=== PATIENT | female | born 1935 | race American Indian/Alaskan Native ===

== ENCOUNTER 2018-04-18 12:05 | Inpatient (IN) | payer OTHER ==
--- NOTE | 2018-04-18 12:13 | PDOC ---
History of Present Illness - General Stated Complaint: LOW SODIUM LEVEL Time Seen by Provider: 04/18/18 12:13 - History of Present Illness Initial Comments: 82 year old female with history of advanced dementia, hypothyroidism, NIDDM, HTN, and chronic hyponatremia presenting with increased aggression for the past 7 days from [facility]. She is typically AO x1-2 at baseline and only occasionally aggressive. Her family denies fevers, chills, nausea, vomiting, diarrhea, cough, congestion, rhinorrhea, rash, or other symptoms. Dr. Lee and Dr. Tabor are her doctors. 04/18/18 12:27 Past History - Past Medical History Allergies/Adverse Reactions: Allergies Allergy/AdvReac Type Severity Reaction Status Date / Time No Known Allergies Allergy Unverified 04/18/18 13:03 Home Medications: Ambulatory Orders Amlodipine Besylate [Norvasc -] 5 mg PO DAILY 04/18/18 Bifidobacterium Infantis [Align] 4 mg PO DAILY 04/18/18 Bupropion HCl [Bupropion Xl] 300 mg PO DAILY 04/18/18 Cholecalciferol (Vitamin D3) [Vitamin D3] 50,000 unit PO MONTHLY 04/18/18 Cholestyramine (with Sugar) [Cholestyramine Powder] 4 gm PO TID 04/18/18 Cyanocobalamin (Vitamin B-12) [Vitamin B12] 5,000 mcg PO DAILY 04/18/18 Cyclosporine [Restasis] 1 each OU BID 04/18/18 Levothyroxine [Synthroid -] 25 mcg PO DAILY 04/18/18 Loperamide HCl [Loperamide] 2 mg PO Q6H PRN 04/18/18 Paliperidone [Paliperidone ER] 1.5 mg PO HS 04/18/18 Sitagliptin Phosphate [Januvia] 50 mg PO DAILY 04/18/18 Vit C/E/Zn/Coppr/Lutein/Zeaxan [Preservision Areds 2 Softgel] 1 each PO DAILY Review of Systems - Review of Systems Able to Perform ROS?: No (ROS obtained from family) Constitutional: No: Chills, Diaphoresis, Fever HEENTM: No: Eye Pain, Blurred Vision Respiratory: Yes: Cough (dry). No: Shortness of Breath, SOB with Exertion Cardiac (ROS): No: Chest Pain, Lightheadedness ABD/GI: No: Nausea, Vomiting : No: Burning, Dysuria, Frequency, Hematuria Musculoskeletal: No: Back Pain, Muscle Pain, Muscle Weakness Integumentary: No: Bruising, Change in Color Neurological: No: Headache, Numbness Psychiatric: Yes: Depression. No: Anxiety, Change in Appetite Hematologic/Lymphatic: No: Anemia *Physical Exam - Physical Exam General Appearance: Yes: Nourished, Appropriately Dressed. No: Apparent Distress (No distress at baseline but becomes very aggitated once moved or touched.) HEENT: positive: EOMI, TENNILLE, Normal ENT Inspection, Normal Voice Neck: positive: Trachea midline, Normal Thyroid, Supple. negative: Tender, Rigid Respiratory/Chest: positive: Lungs Clear, Normal Breath Sounds. negative: Chest Tender, Respiratory Distress, Accessory Muscle Use Cardiovascular: positive: Regular Rhythm, Regular Rate Gastrointestinal/Abdominal: positive: Normal Bowel Sounds, Flat, Soft. negative : Tender Musculoskeletal: positive: Normal Inspection. negative: Decreased Range of Motion (ROM seems ful but patient pulls and prefers to hold herself) Extremity: positive: Normal Capillary Refill, Normal Range of Motion, Swelling ( bilateal LE swelling L>R). negative: Normal Inspection, Tender Integumentary: positive: Normal Color, Dry, Warm Neurologic: positive: Alert, Motor Strength 5/5. negative: Fully Oriented (AOx 1 (to self)) ED Treatment Course - LABORATORY CBC & Chemistry Diagram: 04/18/18 12:30 04/18/18 13:37 Medical Decision Making - Medical Decision Making 82 year old female presenting with one week of agitation without obvious signs of infection but sodium of 124 recorded at [address] head grossly normal with exception of left sinus chronic sinusitis with read of "cannot rule out fungal infection". Labs demonstrating hypothyroidism (TSH 7s) and hyponatremia of (126). Given the two lab abnormalities, she warrants an admission for gentle correction of her sodium and further workup of her chronic hyponatremia (SIADH vs. other causes). UA and CXR clear. Dr. Isaac consulted for electrolyte correction. Dr. Gutiérrez consulted for CT read. Dr. Carbajal was signed out patient and will evaluate her this afternoon. 04/18/18 15:12 *DC/Admit/Observation/Transfer Diagnosis at time of Disposition: Hyponatremia Hypothyroidism Qualifiers: Hypothyroidism type: acquired Qualified Code(s): E03.9 - Hypothyroidism, unspecified - Discharge Dispostion Condition at time of disposition: Stable Decision to Admit order: Yes - Referrals - Patient Instructions - Post Discharge Activity
[2018-04-18 12:36] VITALS: BMI 24.1
--- NOTE | 2018-04-18 13:01 | PDOC ---
Attending Attestation - HPI HPI: 04/18/18 13:14 The patient is a 82 year old female with a significant PMH of advanced dementia , hypothyroidism, NIDDM, HTN, and chronic hyponatremia who presents to the emergency department with increased aggression over the past seven days as per group home. The family states the patient is occasionally aggressive. Family denies any rashes, fever, chills, nausea, vomit, diarrhea and constipation. Allergies: NKA Past surgical history: None reported. Social history: No reported alcohol, drug, or cigarette use. PCP: Dr. Lee - Physicial Exam PE: 04/18/18 14:47 Vitals: Triage vital signs reviewed General Appearance: No acute distress, well nourished, well developed Head: Atraumatic Eyes: Pupils equal reactive round, extraocular movement intact Ears: TM's normal bilaterally Nose: Nares patent bilaterally; no nasal congestion Throat: Posterior oropharynx without erythema, mucous membranes moist Neck: Supple; No nuchal rigidity Chest Wall: Nontender Cardiac: Regular rate and rhythm, no murmurs, no rubs, no gallops Lungs: Clear to auscultation bilateral, good air movement bilaterally Abdomen: Soft, nondistended, normal bowel sounds, nontender to palpation Extremities: Full range of motion to all extremities, no cyanosis, clubbing, or edema Skin: Warm and dry, no rashes or lesions, no rash, no petechiae Neuro: Cranial Nerves 2-12 grossly intact, Strength intact to all extremities, Sensation intact to all extremities. Psych: Normal mood, normal affect - Medical Decision Making 04/18/18 14:20 The patient is a 82 year old female with a significant PMH of advanced dementia , hypothyroidism, NIDDM, HTN, and chronic hyponatremia who presents to the emergency department with increased aggression over the past seven days as per group home. The family states the patient is occasionally aggressive. Family denies any rashes, fever, chills, nausea, vomit, diarrhea and constipation. Allergies: NKA Past surgical history: None reported. Social history: No reported alcohol, drug, or cigarette use. PCP: Dr. Lee 04/18/18 14:37 Imaging: Portable chest XR Impression: No acute chest pathology. Reported by: Dr. Graham 04/18/18 14:45 Case d/w Dr. Lee, PCP. 04/18/18 14:50 Case d/w Dr. Valera, will come see the patient. 04/18/18 14:58 Case d/w Dr. Carbajal, patient is admitted. <Leslie Gifford - Last Filed: 04/18/18 14:58> - Resident Resident Name: Bert Cabrera - ED Attending Attestation I have performed the following: I have examined & evaluated the patient, The case was reviewed & discussed with the resident, I agree w/resident's findings & plan, Exceptions are as noted - Medical Decision Making Patient sensitive emergency department for further management of hypernatremia and agitation CAT scan with no evidence of bleed or mass. Lab sensory sodium of 126. Nephrology has been consult. Will admit patient to care of Dr. Benjamin for further management. <Billy Horvath - Last Filed: 04/18/18 15:11> Heart Score/ECG Review - ECG Impressions Comment:: 04/18/18 15:10 EKG performed at 1504 demonstrated sinus rhythm no serial elevations or T-wave inversions slightly low voltage QRS. Interpreted by me. <Billy Horvath - Last Filed: 04/18/18 15:11>
[2018-04-18] MEDS ORDERED: LORazepam 2 MG/ML SDV VIAL ONE (13:16)
[2018-04-18 13:29] LABS: URINE APPEARANCE CLEAR; URINE BILIRUBIN NEGATIVE (<2.0 mg/dL); URINE COLOR LTYELLOW; URINE GLUCOSE (UA) 3+ (NEGATIVE); URINE KETONE TRACE (NEGATIVE); URINE LEUK ESTERASE NEGATIVE (NEGATIVE); URINE NITRITE NEGATIVE (NEGATIVE); URINE PROTEIN NEGATIVE (NEGATIVE); URINE UROBILINOGEN NEGATIVE mg/dL (0.2-1.0)
[2018-04-18 13:47] LABS: BASO % 0.5 % (0-2.0); EOS % 0.3 % (0-4.5); HEMATOCRIT 34.6 % (32.4-45.2); HEMOGLOBIN 11.1 GM/dL (10.7-15.3); LYMPH % 13.3 % (8-40); MCH 21.9 pg (25.7-33.7); MCHC 32.1 g/dl (32.0-36.0); MEAN CELL VOLUME 68.3 fl (80-96); MEAN PLT VOLUME 7.3 fl (7.5-11.1); MONO % 9.9 % (3.8-10.2); PLATELET COUNT 330 K/MM3 (134-434); RBC 5.07 M/mm3 (3.60-5.2); RDW 18.4 % (11.6-15.6); WHITE BLOOD COUNT 8.9 K/mm3 (4.0-10.0)
[2018-04-18 14:24] LABS: ALBUMIN 3.4 g/dl (3.4-5.0); ANION GAP 10 (8-16); BILIRUBIN,TOTAL 0.4 mg/dL (0.2-1.0); BLOOD UREA NITROGEN 12 mg/dL (7-18); CALCIUM 8.9 mg/dL (8.5-10.1); CHLORIDE 89 mmol/L (98-107); CO2 27 mmol/L (21-32); CREATININE 0.8 mg/dL (0.55-1.02); GLUCOSE,RANDOM 220 mg/dL (74-106); POTASSIUM 4.1 mmol/L (3.5-5.1); SGOT/AST 19 U/L (15-37); SGPT/ALT 26 U/L (12-78); SODIUM 126 mmol/L (136-145)
[2018-04-18 14:33] LABS: ALK PHOS 121 U/L (45-117)
--- NOTE | 2018-04-18 15:55 | CONSULT ---
Consult Consult Specialty:: Nephrology Reason for Consultation:: hyponatremia - History of Present Illness Chief Complaint: sent in for aggression from the [place] History of Present Illness: Pt is an 82 year old female with pmhx of hyponatremia, dementia, hypothyroidism , DM, HTN and depression who was sent in for increased aggression over the last seven days. I was called to evaluate her for hyponatremia. She follows with Dr Seymour and her sodium is usually in the 128 range. She was found to have a sodium of 124 about 3 days ago. She is arousable but unable to give history. Her family and health aid are at bedside and they assisted. She denies shortness of breath. She drinks about one liter of water per day. She has not had much appetite this week. She has not had fevers or chills. She does get loose stools at times. She is usually wheelchair bound. - History Source History Provided By: Medical Record - Past Medical History DIGITAL DESIGNER: Yes: Dementia Cardio/Vascular: Yes: HTN Renal/: Yes: Other (hyponatremia) Psych: Yes: Depression Endocrine: Yes: Diabetes Mellitus, Hypothyroidism - Alcohol/Substance Use Hx Alcohol Use: No - Smoking History Smoking history: Never smoked Home Medications - Allergies Allergies/Adverse Reactions: Allergies Allergy/AdvReac Type Severity Reaction Status Date / Time No Known Allergies Allergy Unverified 04/18/18 13:03 - Home Medications Home Medications: Ambulatory Orders Amlodipine Besylate [Norvasc -] 5 mg PO DAILY 04/18/18 Bifidobacterium Infantis [Align] 4 mg PO DAILY 04/18/18 Bupropion HCl [Bupropion Xl] 300 mg PO DAILY 04/18/18 Cholecalciferol (Vitamin D3) [Vitamin D3] 50,000 unit PO MONTHLY 04/18/18 Cholestyramine (with Sugar) [Cholestyramine Powder] 4 gm PO TID 04/18/18 Cyanocobalamin (Vitamin B-12) [Vitamin B12] 5,000 mcg PO DAILY 04/18/18 Cyclosporine [Restasis] 1 each OU BID 04/18/18 Levothyroxine [Synthroid -] 25 mcg PO DAILY 04/18/18 Loperamide HCl [Loperamide] 2 mg PO Q6H PRN 04/18/18 Paliperidone [Paliperidone ER] 1.5 mg PO HS 04/18/18 Sitagliptin Phosphate [Januvia] 50 mg PO DAILY 04/18/18 Vit C/E/Zn/Coppr/Lutein/Zeaxan [Preservision Areds 2 Softgel] 1 each PO DAILY Family Disease History - Family Disease History Family History: Denies Review of Systems - Review of Systems Constitutional: reports: Malaise Eyes: reports: No Symptoms HENT: reports: No Symptoms Neck: reports: No Symptoms Cardiovascular: reports: No Symptoms Respiratory: reports: No Symptoms Gastrointestinal: reports: No Symptoms Genitourinary: reports: No Symptoms Musculoskeletal: reports: No Symptoms Integumentary: reports: No Symptoms Neurological: reports: No Symptoms Endocrine: reports: No Symptoms Psychiatric: reports: Other (aggression) Physical Exam Vital Signs: Vital Signs Temperature 96.3 F L 04/18/18 12:24 Pulse Rate 88 04/18/18 13:30 Respiratory Rate 17 04/18/18 13:30 Blood Pressure 130/66 04/18/18 13:30 O2 Sat by Pulse Oximetry (%) 100 04/18/18 13:30 Constitutional: Yes: Calm Eyes: Yes: Conjunctiva Clear HENT: Yes: Atraumatic Neck: Yes: Supple Cardiovascular: Yes: S1, S2 Respiratory: Yes: CTA Bilaterally Gastrointestinal: Yes: Soft Renal/: Yes: WNL Musculoskeletal: Yes: WNL Edema: Yes Edema: LLE: 1+, RLE: Trace Integumentary: Yes: WNL Neurological: Yes: Confusion Psychiatric: Yes: Agitated Labs: CBC, BMP 04/18/18 12:30 04/18/18 13:37 Laboratory Tests 04/18/18 04/18/18 04/18/18 12:30 12:55 13:37 WBC 8.9 Hgb 11.1 Plt Count 330 Sodium 126 L Potassium 4.1 Chloride 89 L Anion Gap 10 BUN 12 Creat Clearance w eGFR > 60 Random Glucose 220 H Lactic Acid Urine Appearance Clear Urine pH 6.0 Ur Specific Sparks 1.011 Urine Glucose (UA) 3+ H Urine Ketones Trace H Urine Blood Negative Urine Nitrite Negative Urine Bilirubin Negative 04/18/18 13:37 WBC Hgb Plt Count Sodium Potassium Chloride Anion Gap BUN Creat Clearance w eGFR Random Glucose Lactic Acid 1.7 Urine Appearance Urine pH Ur Specific Sparks Urine Glucose (UA) Urine Ketones Urine Blood Urine Nitrite Urine Bilirubin Imaging - Results Chest X-ray: Report Reviewed Problem List - Problems (1) Aggression Code(s): R46.89 - OTHER SYMPTOMS AND SIGNS INVOLVING APPEARANCE AND BEHAVIOR (2) Diabetes mellitus Code(s): E11.9 - TYPE 2 DIABETES MELLITUS WITHOUT COMPLICATIONS (3) HTN (hypertension) Code(s): I10 - ESSENTIAL (PRIMARY) HYPERTENSION (4) Hyponatremia Code(s): E87.1 - HYPO-OSMOLALITY AND HYPONATREMIA (5) Hypothyroidism Code(s): E03.9 - HYPOTHYROIDISM, UNSPECIFIED Qualifiers: Hypothyroidism type: acquired Qualified Code(s): E03.9 - Hypothyroidism, unspecified Assessment/Plan Impression 1. Hyponatremia - improved from outpt labs 2. aggression 3. DM 4. HTN 5. depression 6. dementia 7. hypothyroidism Plan - check urine and plasma osm - tsh elevated, may need to titrate up the dose of synthroid - check urine sodium - check cortisol - restrict free water to 800 cc - will give a dose of nacl PO and monitor - psych eval for meds - check echo, pt does have lower ext edema - venous doppler pending - will evaluate for saidh vs resent osmostat - will follow
[2018-04-18 16:02] LABS: ANISOCYTOSIS 1+
[2018-04-18 16:03] LABS: PLATELET ESTIMATE ADEQUATE
[2018-04-18] MEDS ORDERED: SODIUM CHLORIDE 1 GM TABLET PO ONE (16:08)
[2018-04-18 16:25] LABS: URINE APPEARANCE CLEAR; URINE BILIRUBIN NEGATIVE (<2.0 mg/dL); URINE COLOR LTYELLOW; URINE GLUCOSE (UA) 3+ (NEGATIVE); URINE KETONE TRACE (NEGATIVE); URINE LEUK ESTERASE NEGATIVE (NEGATIVE); URINE NITRITE NEGATIVE (NEGATIVE); URINE PROTEIN NEGATIVE (NEGATIVE); URINE UROBILINOGEN NEGATIVE mg/dL (0.2-1.0)
[2018-04-18] MEDS ORDERED: LOPERAMIDE HCL 2 MG CAPSULE PO PRN (20:47)
--- NOTE | 2018-04-18 21:40 | HP ---
Admitting History and Physical - Admission History of Present Illness: 82 year old female with history of advanced dementia, hypothyroidism, NIDDM, HTN, and chronic hyponatremia presenting with increased aggression / altered mental status for the past 7 days from [facility] Assisted living, Memory support unit. She is typically AO x1-2 at baseline and only occasionally aggressive. Her family denies fevers, chills, nausea, vomiting, diarrhea, cough , congestion, rhinorrhea, rash, or other symptoms. Residence was called History Source: Medical Record Limitations to Obtaining History: Dementia - Past Medical History ELIGIBILITY ANALYST: Yes: Dementia Cardiovascular: Yes: HTN Renal/: Yes: Other (hyponatremia) Psych: Yes: Depression Endocrine: Yes: Diabetes Mellitus, Hypothyroidism - Smoking History Smoking history: Never smoked - Alcohol/Substance Use Hx Alcohol Use: No - Social History Usual Living Arrangement: Yes: Assisted Living ADL: Support Services History of Recent Travel: No Home Medications - Allergies Allergies/Adverse Reactions: Allergies Allergy/AdvReac Type Severity Reaction Status Date / Time No Known Allergies Allergy Unverified 04/18/18 13:03 - Home Medications Home Medications: Ambulatory Orders Amlodipine Besylate [Norvasc -] 5 mg PO DAILY 04/18/18 Bifidobacterium Infantis [Align] 4 mg PO DAILY 04/18/18 Bupropion HCl [Bupropion Xl] 300 mg PO DAILY 04/18/18 Cholecalciferol (Vitamin D3) [Vitamin D3] 50,000 unit PO MONTHLY 04/18/18 Cholestyramine (with Sugar) [Cholestyramine Powder] 4 gm PO TID 04/18/18 Cyanocobalamin (Vitamin B-12) [Vitamin B12] 5,000 mcg PO DAILY 04/18/18 Cyclosporine [Restasis] 1 each OU BID 04/18/18 Levothyroxine [Synthroid -] 25 mcg PO DAILY 04/18/18 Loperamide HCl [Loperamide] 2 mg PO Q6H PRN 04/18/18 Paliperidone [Paliperidone ER] 1.5 mg PO HS 04/18/18 Sitagliptin Phosphate [Januvia] 50 mg PO DAILY 04/18/18 Vit C/E/Zn/Coppr/Lutein/Zeaxan [Preservision Areds 2 Softgel] 1 each PO DAILY Review of Systems Unable to obtain ROS, reason: Dementia Findings/Remarks: hx obtained from family and medical records - Review of Systems Constitutional: denies: Chills, Fever, Night Sweats, Unintentional Wgt. Loss HENT: denies: Difficult Swallowing Cardiovascular: denies: Shortness of Breath Neurological: reports: Confusion, Pre-Existing Deficit, Unsteady Gait Physical Examination Vital Signs: Vital Signs Temperature 97.6 F 04/18/18 18:30 Pulse Rate 93 H 04/18/18 18:30 Respiratory Rate 20 04/18/18 18:30 Blood Pressure 134/60 04/18/18 18:30 O2 Sat by Pulse Oximetry (%) 96 04/18/18 20:24 Constitutional: Yes: Anxious, Mild Distress Eyes: Yes: Other (right eye with purulent discharge / sclera injected patient not cooperative with exam) HENT: Yes: Other (unable to assess nasopharynx -- uncooperative) Neck: Yes: Supple, Trachea Midline Cardiovascular: Yes: Regular Rate and Rhythm Respiratory: Yes: CTA Bilaterally Gastrointestinal: Yes: Normal Bowel Sounds, Soft ...Rectal Exam: Yes: Deferred Renal/: Yes: WNL Breast(s): Yes: WNL Musculoskeletal: Yes: Other (good ROM / no deformities) Edema: LLE: Trace, RLE: Trace Peripheral Pulses WNL: Yes Integumentary: Yes: WNL Neurological: Yes: Pre-Existing Deficit Labs: CBC, BMP 04/18/18 12:30 04/18/18 13:37 Problem List - Problems (1) Hyponatremia Code(s): E87.1 - HYPO-OSMOLALITY AND HYPONATREMIA (2) Aggression Code(s): R46.89 - OTHER SYMPTOMS AND SIGNS INVOLVING APPEARANCE AND BEHAVIOR (3) Sinusitis, chronic Code(s): J32.9 - CHRONIC SINUSITIS, UNSPECIFIED (4) Conjunctivitis Code(s): H10.9 - UNSPECIFIED CONJUNCTIVITIS (5) Hypothyroidism Code(s): E03.9 - HYPOTHYROIDISM, UNSPECIFIED Qualifiers: Hypothyroidism type: acquired Qualified Code(s): E03.9 - Hypothyroidism, unspecified (6) Diabetes mellitus Code(s): E11.9 - TYPE 2 DIABETES MELLITUS WITHOUT COMPLICATIONS (7) HTN (hypertension) Code(s): I10 - ESSENTIAL (PRIMARY) HYPERTENSION
[2018-04-18] MEDS: TOBRAMYCIN 0.3% OPHTH SOLN 5 ML BOTTLE OD SCH (22:11)
[2018-04-18] MEDS: LORazepam 2 MG/ML SDV VIAL IM PRN (22:11)
[2018-04-19] MEDS: LEVOTHYROXINE NA 50 MCG TABLET (FP) PO SCH (06:42)
[2018-04-19] MEDS: TOBRAMYCIN 0.3% OPHTH SOLN 5 ML BOTTLE OD SCH ×5 (06:42→22:25)
[2018-04-19 07:18] LABS: HEMATOCRIT 31.4 % (32.4-45.2); MCHC 31.7 g/dl (32.0-36.0); MEAN CELL VOLUME 69.4 fl (80-96); MEAN PLT VOLUME 6.6 fl (7.5-11.1); PLATELET COUNT 282 K/MM3 (134-434); RBC 4.53 M/mm3 (3.60-5.2); RDW 17.5 % (11.6-15.6); WHITE BLOOD COUNT 6.9 K/mm3 (4.0-10.0)
[2018-04-19] MEDS ORDERED: PT OWN MED DRAWER 7, Y5N ONE (09:13)
[2018-04-19] MEDS: amLODIPine BESYLATE 5 MG TABLET (FP) PO SCH (09:14)
[2018-04-19 09:20] LABS: ANION GAP 8 (8-16); BLOOD UREA NITROGEN 10 mg/dL (7-18); CALCIUM 8.4 mg/dL (8.5-10.1); CHLORIDE 92 mmol/L (98-107); CO2 29 mmol/L (21-32); CREATININE 0.8 mg/dL (0.55-1.02); GLUCOSE,RANDOM 134 mg/dL (74-106); SGOT/AST 21 U/L (15-37); SGPT/ALT 24 U/L (12-78); SODIUM 129 mmol/L (136-145)
[2018-04-19 09:22] LABS: ALK PHOS 105 U/L (45-117); BILIRUBIN,TOTAL 0.4 mg/dL (0.2-1.0); TOT PROT 6.2 g/dl (6.4-8.2)
[2018-04-19] MEDS ORDERED: BIFIDOBACTERIUM INFANTIS 4 MG PO SCH (10:00)
[2018-04-19] MEDS ORDERED: PATIENT'S OWN MEDICATION (NON-FORMULARY) (Vit C/E/Zn/Coppr/Lutein/Zeaxan [Preservision Are PO SCH (10:00)
[2018-04-19] MEDS ORDERED: LEVOTHYROXINE NA 25 MCG TABLET (FP) PO SCH (10:00)
[2018-04-19] MEDS: AZITHROMYCIN IVPB 500 MG in DEXTROSE 5%-WATER - 250 ML IVPB SCH (10:57)
--- NOTE | 2018-04-19 12:02 | PN ---
Progress Note (short form) - Note Progress Note: patient is laying down / sedated Vital Signs Period Temp Pulse Resp BP Sys/Fleming Pulse Ox Last 24 Hr 96.2 F-98.8 F 84-96 16-21 106-173/60-74 96-100 Right conjunctivitis -- improved / less d/c sclear clear neck supple heart S1/S2 lung clear bilat and soft non tender Ext no edema CBC, BMP 04/19/18 06:40 Active Medications Amlodipine Besylate (Norvasc -) 5 mg PO DAILY [facility] Last Admin: 04/19/18 09:14 Dose: 5 mg Bupropion HCl (Wellbutrin Xl -) 300 mg PO DAILY [facility] Last Admin: 04/19/18 09:15 Dose: 300 mg Azithromycin 500 mg/ Dextrose 250 mls @ 250 mls/hr IVPB DAILY [facility] Last Admin: 04/19/18 10:57 Dose: 250 mls/hr Levothyroxine Sodium (Synthroid -) 50 mcg PO DAILY@0700 [facility] Last Admin: 04/19/18 06:42 Dose: 50 mcg Loperamide HCl (Imodium -) 2 mg PO Q6H PRN PRN Reason: DIARRHEA Lorazepam (Ativan Injection -) 1 mg IM Q6H PRN PRN Reason: ANXIETY Last Admin: 04/18/18 22:11 Dose: 1 mg Tobramycin Sulfate (Tobrex Ophthalmic Solution -) 1 drop OD Q4HWA [facility] Stop: 04/21/18 21:59 Last Admin: 04/19/18 09:14 Dose: 1 drop The patient is a 82 year old female with a significant PMH of advanced dementia, hypothyroidism, NIDDM, HTN, and chronic hyponatremia who presents to the emergency department with increased aggression over the past seven days as per half-way. The family states the patient is occasionally aggressive. # Hyponatremia slowly improving -- continue to trend fluid restrict # Dementia continue to monitor for safety # Hypothyroid synthroid increased -- elevated TSH will monitor as out patient # DM II will resume Januvia once she begins PO intake ck HgA1C Problem List - Problems (1) Hyponatremia Code(s): E87.1 - HYPO-OSMOLALITY AND HYPONATREMIA (2) Aggression Code(s): R46.89 - OTHER SYMPTOMS AND SIGNS INVOLVING APPEARANCE AND BEHAVIOR (3) Sinusitis, chronic Code(s): J32.9 - CHRONIC SINUSITIS, UNSPECIFIED (4) Conjunctivitis Code(s): H10.9 - UNSPECIFIED CONJUNCTIVITIS (5) Hypothyroidism Code(s): E03.9 - HYPOTHYROIDISM, UNSPECIFIED Qualifiers: Hypothyroidism type: acquired Qualified Code(s): E03.9 - Hypothyroidism, unspecified (6) Diabetes mellitus Code(s): E11.9 - TYPE 2 DIABETES MELLITUS WITHOUT COMPLICATIONS (7) HTN (hypertension) Code(s): I10 - ESSENTIAL (PRIMARY) HYPERTENSION
[2018-04-19 14:52] LABS: OSMOLALITY,SERUM 269 mosm/kg (278-305)
--- NOTE | 2018-04-19 15:54 | PN ---
Progress Note, Physician History of Present Illness: Pt seen and examined at bedside. She is agitated. - Current Medication List Current Medications: Active Medications Amlodipine Besylate (Norvasc -) 5 mg PO DAILY [facility] Last Admin: 04/19/18 09:14 Dose: 5 mg Bupropion HCl (Wellbutrin Xl -) 300 mg PO DAILY [facility] Last Admin: 04/19/18 09:15 Dose: 300 mg Azithromycin 500 mg/ Dextrose 250 mls @ 250 mls/hr IVPB DAILY [facility] Last Admin: 04/19/18 10:57 Dose: 250 mls/hr Levothyroxine Sodium (Synthroid -) 50 mcg PO DAILY@0700 [facility] Last Admin: 04/19/18 06:42 Dose: 50 mcg Loperamide HCl (Imodium -) 2 mg PO Q6H PRN PRN Reason: DIARRHEA Lorazepam (Ativan Injection -) 1 mg IM Q6H PRN PRN Reason: ANXIETY Last Admin: 04/18/18 22:11 Dose: 1 mg Tobramycin Sulfate (Tobrex Ophthalmic Solution -) 1 drop OD Q4HWA [facility] Stop: 04/21/18 21:59 Last Admin: 04/19/18 14:43 Dose: 1 drop - Objective Vital Signs: Vital Signs Temperature 98.8 F 04/19/18 08:00 Pulse Rate 86 04/19/18 08:00 Respiratory Rate 16 04/19/18 08:00 Blood Pressure 122/60 04/19/18 08:00 O2 Sat by Pulse Oximetry (%) 96 04/19/18 09:00 Constitutional: Yes: Anxious Eyes: Yes: Conjunctiva Clear Cardiovascular: Yes: S1, S2 Respiratory: Yes: CTA Bilaterally Gastrointestinal: Yes: Normal Bowel Sounds, Soft Genitourinary: Yes: WNL Musculoskeletal: Yes: WNL Edema: No Integumentary: Yes: WNL Neurological: Yes: Confusion Psychiatric: Yes: Agitated Labs: CBC, BMP 04/19/18 06:40 04/19/18 06:40 INR, PTT INR Cancelled 04/18/18 12:30 - ....Imaging Ultrasound: Report Reviewed Problem List - Problems (1) Aggression Code(s): R46.89 - OTHER SYMPTOMS AND SIGNS INVOLVING APPEARANCE AND BEHAVIOR (2) Diabetes mellitus Code(s): E11.9 - TYPE 2 DIABETES MELLITUS WITHOUT COMPLICATIONS (3) HTN (hypertension) Code(s): I10 - ESSENTIAL (PRIMARY) HYPERTENSION (4) Hyponatremia Code(s): E87.1 - HYPO-OSMOLALITY AND HYPONATREMIA (5) Hypothyroidism Code(s): E03.9 - HYPOTHYROIDISM, UNSPECIFIED Qualifiers: Hypothyroidism type: acquired Qualified Code(s): E03.9 - Hypothyroidism, unspecified Assessment/Plan Current Medications Generic Name Dose Route Start Last Admin Trade Name Freq PRN Reason Stop Dose Admin Amlodipine Besylate 5 mg 04/19/18 10:00 04/19/18 09:14 Norvasc - PO 5 mg DAILY SHAYAN Administration Bupropion HCl 300 mg 04/19/18 10:00 04/19/18 09:15 Wellbutrin Xl - PO 300 mg DAILY SHAYAN Administration Azithromycin 500 mg/ Dextrose 250 mls @ 250 mls/hr 04/19/18 10:00 04/19/18 10 :57 IVPB 250 mls/hr DAILY SHAYAN Administration Levothyroxine Sodium 50 mcg 04/19/18 07:00 04/19/18 06:42 Synthroid - PO 50 mcg DAILY@0700 SHAYAN Administration Loperamide HCl 2 mg 04/18/18 20:47 Imodium - PO Q6H PRN DIARRHEA Lorazepam 1 mg 04/18/18 21:30 04/18/18 22:11 Ativan Injection - IM 1 mg Q6H PRN Administration ANXIETY Tobramycin Sulfate 1 drop 04/18/18 22:00 04/19/18 14:43 Tobrex Ophthalmic Solution - OD 04/21/18 21:59 1 drop Q4HWA SHAYAN Administration Laboratory Tests 04/18/18 04/18/18 04/18/18 13:37 13:37 16:10 Sodium Serum Osmolality 264 L TSH 7.55 H Cortisol AM Sample Urine Osmolality Ur Random Sodium 58 04/18/18 04/19/18 04/19/18 16:10 06:40 06:40 Sodium 129 L Serum Osmolality 269 L TSH Cortisol AM Sample Pending Urine Osmolality 431 Ur Random Sodium Impression 1. Hyponatremia - improved from outpt labs 2. aggression 3. DM 4. HTN 5. depression 6. dementia 7. hypothyroidism Plan - urine and plasma studies are consistent with an SIADH picture - she did repsond to a salt tab - repeat labs in am - check cortisol - restrict free water to 800 cc - psych eval for meds - check echo - lower ext edema is improved - will follow
[2018-04-19] MEDS: LORazepam 2 MG/ML SDV VIAL IM PRN (17:17)
[2018-04-19] MEDS: SODIUM CHLORIDE 1 GM TABLET PO SCH (17:19)
--- NOTE | 2018-04-19 18:48 | CON.PSY ---
Psychiatry Consult Chief Complaint: Asked to see Ms. Davis for worsening mental status: more aggressive behavior and. more confusion. History of Present Problem: Patient was found lying in bed restrains on, confused. She is alert to self and she is aware that she is in the hospital in [place] Hx of aggression and confusion in the NH but it was felt that her aggression and confusion worsened lately and she was admitted. - Current Medications Current Medications: Active Medications Amlodipine Besylate (Norvasc -) 5 mg PO DAILY [facility] Last Admin: 04/19/18 09:14 Dose: 5 mg Bupropion HCl (Wellbutrin Xl -) 300 mg PO DAILY [facility] Last Admin: 04/19/18 09:15 Dose: 300 mg Azithromycin 500 mg/ Dextrose 250 mls @ 250 mls/hr IVPB DAILY [facility] Last Admin: 04/19/18 10:57 Dose: 250 mls/hr Levothyroxine Sodium (Synthroid -) 50 mcg PO DAILY@0700 [facility] Last Admin: 04/19/18 06:42 Dose: 50 mcg Loperamide HCl (Imodium -) 2 mg PO Q6H PRN PRN Reason: DIARRHEA Lorazepam (Ativan Injection -) 1 mg IM Q6H PRN PRN Reason: ANXIETY Last Admin: 04/19/18 17:17 Dose: 1 mg Sodium Chloride (Sodium Chloride Tablet -) 1 gm PO DAILY [facility] Last Admin: 04/19/18 17:19 Dose: 1 gm Tobramycin Sulfate (Tobrex Ophthalmic Solution -) 1 drop OD Q4HWA [facility] Stop: 04/21/18 21:59 Last Admin: 04/19/18 17:18 Dose: 1 drop - Allergies Allergies: Allergies Allergy/AdvReac Type Severity Reaction Status Date / Time No Known Allergies Allergy Unverified 04/18/18 13:03 - Current Living Status Usual Living Arrangement: Care Home - Psychomotor Activity Psychomotor Activity: Agitated (further evaluation not possible due to her confused state.) Assessment/Plan Electrolytes imbalance low NA and improving TSH high Based on medical chart review, RN input labs Rec: Avoid ativan in this patient as it can cause/worsen delirium Decrease wellbutrin to 150 mgs in the Am due to activating effect- it can worsen anxiety Consider remeron 7.5 mg q hs-for now
[2018-04-20] MEDS: LORazepam 2 MG/ML SDV VIAL IM PRN ×2 (03:18→22:18)
[2018-04-20] MEDS: TOBRAMYCIN 0.3% OPHTH SOLN 5 ML BOTTLE OD SCH ×5 (05:41→21:18)
[2018-04-20 06:38] LABS: BASO % 0.9 % (0-2.0); EOS % 0.5 % (0-4.5); HEMOGLOBIN 10.2 GM/dL (10.7-15.3); LYMPH % 17.5 % (8-40); MCHC 31.8 g/dl (32.0-36.0); MEAN CELL VOLUME 69.1 fl (80-96); MEAN PLT VOLUME 6.8 fl (7.5-11.1); MONO % 13.3 % (3.8-10.2); NEUT % 67.8 % (42.8-82.8); PLATELET COUNT 308 K/MM3 (134-434); RBC 4.63 M/mm3 (3.60-5.2); RDW 17.6 % (11.6-15.6); WHITE BLOOD COUNT 6.4 K/mm3 (4.0-10.0)
[2018-04-20 07:04] LABS: ANION GAP 9 (8-16); BLOOD UREA NITROGEN 8 mg/dL (7-18); CALCIUM 8.5 mg/dL (8.5-10.1); CHLORIDE 95 mmol/L (98-107); CO2 28 mmol/L (21-32); CREATININE 0.7 mg/dL (0.55-1.02); GLUCOSE,RANDOM 158 mg/dL (74-106); POTASSIUM 3.5 mmol/L (3.5-5.1); SODIUM 132 mmol/L (136-145)
[2018-04-20] MEDS: LEVOTHYROXINE NA 50 MCG TABLET (FP) PO SCH (07:36)
--- NOTE | 2018-04-20 10:46 | PN ---
Progress Note (short form) - Note Progress Note: patient is laying down / sedated Vital Signs Period Temp Pulse Resp BP Sys/Fleming Pulse Ox Last 24 Hr 97.0 F-98.1 F 80-93 20-20 130-140/66-76 96 Right conjunctivitis -- improved / less d/c sclear clear neck supple heart S1/S2 lung clear bilat and soft non tender Ext no edema CBC, BMP 04/20/18 06:10 04/20/18 06:10 CBC, BMP 04/19/18 04/19/18 06:40 Active Medications Amlodipine Besylate (Norvasc -) 5 mg PO DAILY [facility] Last Admin: 04/19/18 09:14 Dose: 5 mg Bupropion HCl (Wellbutrin Xl -) 300 mg PO DAILY [facility] Last Admin: 04/19/18 09:15 Dose: 300 mg Azithromycin 500 mg/ Dextrose 250 mls @ 250 mls/hr IVPB DAILY [facility] Last Admin: 04/19/18 10:57 Dose: 250 mls/hr Levothyroxine Sodium (Synthroid -) 50 mcg PO DAILY@0700 [facility] Last Admin: 04/19/18 06:42 Dose: 50 mcg Loperamide HCl (Imodium -) 2 mg PO Q6H PRN PRN Reason: DIARRHEA Lorazepam (Ativan Injection -) 1 mg IM Q6H PRN PRN Reason: ANXIETY Last Admin: 04/18/18 22:11 Dose: 1 mg Tobramycin Sulfate (Tobrex Ophthalmic Solution -) 1 drop OD Q4HWA [facility] Stop: 04/21/18 21:59 Last Admin: 04/19/18 09:14 Dose: 1 drop The patient is a 82 year old female with a significant PMH of advanced dementia, hypothyroidism, NIDDM, HTN, and chronic hyponatremia who presents to the emergency department with increased aggression over the past seven days as per long-term. The family states the patient is occasionally aggressive. # Hyponatremia slowly improving -- continue to trend fluid restrict # conjunctivitis tobramycin / eye wash / avoid contact # chronic sinusitis azithromycin / expectorant / # Dementia continue to monitor for safety psych eval appreciated will start remeron # Hypothyroid synthroid increased -- elevated TSH will monitor as out patient # DM II will resume Januvia once she begins PO intake HgA1C 8.6 will need better control -- will resume Januvia Problem List - Problems (1) Hyponatremia Code(s): E87.1 - HYPO-OSMOLALITY AND HYPONATREMIA (2) Aggression Code(s): R46.89 - OTHER SYMPTOMS AND SIGNS INVOLVING APPEARANCE AND BEHAVIOR (3) Sinusitis, chronic Code(s): J32.9 - CHRONIC SINUSITIS, UNSPECIFIED (4) Conjunctivitis Code(s): H10.9 - UNSPECIFIED CONJUNCTIVITIS (5) Hypothyroidism Code(s): E03.9 - HYPOTHYROIDISM, UNSPECIFIED Qualifiers: Hypothyroidism type: acquired Qualified Code(s): E03.9 - Hypothyroidism, unspecified (6) Diabetes mellitus Code(s): E11.9 - TYPE 2 DIABETES MELLITUS WITHOUT COMPLICATIONS (7) HTN (hypertension) Code(s): I10 - ESSENTIAL (PRIMARY) HYPERTENSION
[2018-04-20] MEDS ORDERED: sitaGLIPtin PHOSPHATE 50 MG TABLET PO ONE (11:30)
[2018-04-20] MEDS ORDERED: PT OWN MED DRAWER 7, Y5N ONE ×5 (11:57→21:17)
[2018-04-20] MEDS: amLODIPine BESYLATE 5 MG TABLET (FP) PO SCH (11:59)
[2018-04-20] MEDS: SODIUM CHLORIDE 1 GM TABLET PO SCH (12:00)
[2018-04-20] MEDS: AZITHROMYCIN IVPB 500 MG in DEXTROSE 5%-WATER - 250 ML IVPB SCH (12:44)
--- NOTE | 2018-04-20 15:20 | PN ---
Progress Note, Physician History of Present Illness: Pt seen and examined at bedside. She is agitated. - Current Medication List Current Medications: Active Medications Amlodipine Besylate (Norvasc -) 5 mg PO DAILY [facility] Last Admin: 04/20/18 11:59 Dose: 5 mg Bupropion HCl (Wellbutrin Xl -) 300 mg PO DAILY [facility] Last Admin: 04/20/18 12:01 Dose: 300 mg Azithromycin 500 mg/ Dextrose 250 mls @ 250 mls/hr IVPB DAILY [facility] Last Admin: 04/20/18 12:44 Dose: Not Given Levothyroxine Sodium (Synthroid -) 50 mcg PO DAILY@0700 [facility] Last Admin: 04/20/18 07:36 Dose: 50 mcg Loperamide HCl (Imodium -) 2 mg PO Q6H PRN PRN Reason: DIARRHEA Lorazepam (Ativan Injection -) 1 mg IM Q6H PRN PRN Reason: ANXIETY Last Admin: 04/20/18 03:18 Dose: 1 mg Mirtazapine (Remeron -) 7.5 mg PO [facility] Sitagliptin Phosphate (Januvia -) 50 mg PO DAILY@0700 [facility] Sodium Chloride (Sodium Chloride Tablet -) 1 gm PO DAILY [facility] Last Admin: 04/20/18 12:00 Dose: 1 gm Tobramycin Sulfate (Tobrex Ophthalmic Solution -) 1 drop OD Q4HWA [facility] Stop: 04/21/18 21:59 Last Admin: 04/20/18 14:32 Dose: 1 drop - Objective Vital Signs: Vital Signs Temperature 98.4 F 04/20/18 14:00 Pulse Rate 85 04/20/18 14:00 Respiratory Rate 18 04/20/18 14:00 Blood Pressure 125/64 04/20/18 14:00 O2 Sat by Pulse Oximetry (%) 96 04/19/18 21:00 Constitutional: Yes: Anxious Eyes: Yes: Conjunctiva Clear HENT: Yes: Atraumatic Neck: Yes: Supple Cardiovascular: Yes: S1, S2 Respiratory: Yes: CTA Bilaterally Gastrointestinal: Yes: Soft Genitourinary: Yes: Incontinence Musculoskeletal: Yes: WNL Edema: No Integumentary: Yes: WNL Neurological: Yes: Confusion Labs: CBC, BMP 04/20/18 06:10 04/20/18 06:10 INR, PTT INR Cancelled 06/23/18 12:30 Problem List - Problems (1) Aggression Code(s): R46.89 - OTHER SYMPTOMS AND SIGNS INVOLVING APPEARANCE AND BEHAVIOR (2) Diabetes mellitus Code(s): E11.9 - TYPE 2 DIABETES MELLITUS WITHOUT COMPLICATIONS (3) HTN (hypertension) Code(s): I10 - ESSENTIAL (PRIMARY) HYPERTENSION (4) Hyponatremia Code(s): E87.1 - HYPO-OSMOLALITY AND HYPONATREMIA (5) Hypothyroidism Code(s): E03.9 - HYPOTHYROIDISM, UNSPECIFIED Qualifiers: Hypothyroidism type: acquired Qualified Code(s): E03.9 - Hypothyroidism, unspecified Assessment/Plan Current Medications Generic Name Dose Route Start Last Admin Trade Name Freq PRN Reason Stop Dose Admin Amlodipine Besylate 5 mg 04/19/18 10:00 04/20/18 11:59 Norvasc - PO 5 mg DAILY [facility] Administration Bupropion HCl 300 mg 04/19/18 10:00 04/20/18 12:01 Wellbutrin Xl - PO 300 mg DAILY [facility] Administration Azithromycin 500 mg/ Dextrose 250 mls @ 250 mls/hr 04/19/18 10:00 04/20/18 12 :44 IVPB Not Given DAILY [facility] Levothyroxine Sodium 50 mcg 04/19/18 07:00 04/20/18 07:36 Synthroid - PO 50 mcg DAILY@0700 [facility] Administration Loperamide HCl 2 mg 04/18/18 20:47 Imodium - PO Q6H PRN DIARRHEA Lorazepam 1 mg 04/18/18 21:30 04/20/18 03:18 Ativan Injection - IM 1 mg Q6H PRN Administration ANXIETY Mirtazapine 7.5 mg 04/20/18 22:00 Remeron - PO HS [facility] Sitagliptin Phosphate 50 mg 04/21/18 07:00 Januvia - PO DAILY@0700 [facility] Sodium Chloride 1 gm 04/19/18 16:00 04/20/18 12:00 Sodium Chloride Tablet - PO 1 gm DAILY [facility] Administration Tobramycin Sulfate 1 drop 04/18/18 22:00 04/20/18 14:32 Tobrex Ophthalmic Solution - OD 04/21/18 21:59 1 drop Q4HWA [facility] Administration Laboratory Tests 04/18/18 04/18/18 12:55 16:10 Urine Glucose (UA) 3+ H 3+ H Impression 1. Hyponatremia - improved from outpt labs 2. aggression 3. DM 4. HTN 5. depression 6. dementia 7. hypothyroidism Plan - sodium improving - cont salt tab - cont free water restriction - repeat labs in am - will need better blood sugar control - check cortisol - restrict free water to 800 cc - check echo - will follow
--- NOTE | 2018-04-20 18:02 | CON.ENT ---
Consult Consult Specialty:: ENT Referred by:: Dr Carbajal Reason for Consultation:: Chronic sinusitis - History of Present Illness Chief Complaint: Change of mental status with agression/finding of sinusitis on CT scan History of Present Illness: 82 yo female with advanced dementia, multiple medical problems who was admitted from her NH with change in mental status with increased aggression. Upon work-up , hyponatremia was found and treated. CT scan of head found left sphenoid opacification with chronic inflammatory changes. Pt's denies any history of chronic nasal issues, allergy history or current nasal concerns. No bleeding or headaches noted - History Source History Provided By: Family Member, Significant Other Limitations to Obtaining History: Dementia - Past Medical History [employer]: Yes: Dementia Cardio/Vascular: Yes: HTN Renal/: Yes: Other (hyponatremia) Psych: Yes: Depression Endocrine: Yes: Diabetes Mellitus, Hypothyroidism - Alcohol/Substance Use Hx Alcohol Use: No - Smoking History Smoking history: Never smoked - Social History Usual Living Arrangement: [facility] ADL: Support Services History of Recent Travel: No Home Medications - Allergies Allergies/Adverse Reactions: Allergies Allergy/AdvReac Type Severity Reaction Status Date / Time No Known Allergies Allergy Unverified 04/18/18 13:03 - Home Medications Home Medications: Ambulatory Orders Amlodipine Besylate [Norvasc -] 5 mg PO DAILY 04/18/18 Bifidobacterium Infantis [Align] 4 mg PO DAILY 04/18/18 Bupropion HCl [Bupropion Xl] 300 mg PO DAILY 04/18/18 Cholecalciferol (Vitamin D3) [Vitamin D3] 50,000 unit PO MONTHLY 04/18/18 Cholestyramine (with Sugar) [Cholestyramine Powder] 4 gm PO TID 04/18/18 Cyanocobalamin (Vitamin B-12) [Vitamin B12] 5,000 mcg PO DAILY 04/18/18 Cyclosporine [Restasis] 1 each OU BID 04/18/18 Levothyroxine [Synthroid -] 25 mcg PO DAILY 04/18/18 Loperamide HCl [Loperamide] 2 mg PO Q6H PRN 04/18/18 Paliperidone [Paliperidone ER] 1.5 mg PO HS 04/18/18 Sitagliptin Phosphate [Januvia] 50 mg PO DAILY 04/18/18 Vit C/E/Zn/Coppr/Lutein/Zeaxan [Preservision Areds 2 Softgel] 1 each PO DAILY Review of Systems - Review of Systems HENT: reports: No Symptoms Physical Exam-ENT Vital Signs: Vital Signs Temperature 98.4 F 04/20/18 14:00 Pulse Rate 85 04/20/18 14:00 Respiratory Rate 18 04/20/18 14:00 Blood Pressure 125/64 04/20/18 14:00 O2 Sat by Pulse Oximetry (%) 96 04/19/18 21:00 Constitutional: Yes: Calm Head: Yes: WNL Face: Yes: No Sinus Tenderness, Normal Facial Strength, Normal Salivary Glands Eyes: Yes: EOM Intact Nose: Yes: Pale Nasal Passage: Yes: Pale Oral/Pharynx: Yes: WNL Outer Ear: Yes: WNL Ear Canal: Yes: WNL Neck: Yes: Supple Neurological: Yes: Cran Nerves II-XII Intact Imaging - Results Cat Scan: Report Reviewed (Left sphenoid opacification with bony thickening consistent with chronic inflammation, other sinuses clear), Image Reviewed Problem List - Problems (1) Hyponatremia Code(s): E87.1 - HYPO-OSMOLALITY AND HYPONATREMIA (2) Sinusitis, chronic Assessment/Plan: Pt with finding of opacified left sphenoid sinus with bony thickening on CT of head. No significant past nasal/sinus issues or problems as per . No polyps, purulence or lesions noted on nasal endoscopy. Continue course of Zithromax. Would add Fluticasone spray as well. Code(s): J32.9 - CHRONIC SINUSITIS, UNSPECIFIED Qualifiers: Sinusitis location: sphenoidal Qualified Code(s): J32.3 - Chronic sphenoidal sinusitis Procedure Note Procedure: Sinus Endoscopy- after obtaining verbal consent from her at the bedside , topical anesthetic/decongestant sprayed intranasally. Flexible endoscope passed bilaterally. Findings- mildly deviated septum with pale mucosa. Normal inferior and middle turbinates. No polyps, lesions or purulence noted. Left spheno-ethmoid recess appeared clear. Normal naso-pharynx.
[2018-04-20] MEDS: MIRTAZAPINE 15 MG TABLET (FP) PO SCH (21:18)
--- NOTE | 2018-04-20 21:49 | EKG ---
Test Reason : Blood Pressure : / mmHG Vent. Rate : 091 BPM Atrial Rate : 091 BPM P-R Int : 152 ms QRS Dur : 082 ms QT Int : 368 ms P-R-T Axes : 004 013 025 degrees QTc Int : 452 ms NORMAL SINUS RHYTHM LOW VOLTAGE QRS BORDERLINE ECG NO PREVIOUS ECGS AVAILABLE Confirmed by YARA PRIDE MD ([id number]) on 04/20/2018 9:49:09 PM Referred By: Confirmed By:YARA PRIDE MD
[2018-04-21] MEDS ORDERED: PT OWN MED DRAWER 7, Y5N ONE ×2 (06:33→09:56)
[2018-04-21] MEDS: LEVOTHYROXINE NA 50 MCG TABLET (FP) PO SCH (06:41)
[2018-04-21] MEDS: sitaGLIPtin PHOSPHATE 50 MG TABLET PO SCH (06:42)
[2018-04-21] MEDS: TOBRAMYCIN 0.3% OPHTH SOLN 5 ML BOTTLE OD SCH ×4 (06:42→17:36)
[2018-04-21 07:29] LABS: BASO % 0.8 % (0-2.0); EOS % 1.2 % (0-4.5); HEMATOCRIT 34.3 % (32.4-45.2); HEMOGLOBIN 10.8 GM/dL (10.7-15.3); LYMPH % 20.6 % (8-40); MCHC 31.6 g/dl (32.0-36.0); MEAN CELL VOLUME 69.8 fl (80-96); MEAN PLT VOLUME 7.1 fl (7.5-11.1); MONO % 13.7 % (3.8-10.2); NEUT % 63.7 % (42.8-82.8); PLATELET COUNT 310 K/MM3 (134-434); RBC 4.92 M/mm3 (3.60-5.2); RDW 17.7 % (11.6-15.6); WHITE BLOOD COUNT 6.8 K/mm3 (4.0-10.0)
[2018-04-21 07:38] LABS: CHLORIDE 96 mmol/L (98-107); POTASSIUM 3.6 mmol/L (3.5-5.1); SODIUM 132 mmol/L (136-145)
[2018-04-21 07:43] LABS: ANION GAP 11 (8-16); BLOOD UREA NITROGEN 7 mg/dL (7-18); CALCIUM 8.8 mg/dL (8.5-10.1); CO2 25 mmol/L (21-32); CREATININE 0.8 mg/dL (0.55-1.02); GLUCOSE,RANDOM 147 mg/dL (74-106); MAGNESIUM 1.7 mg/dL (1.8-2.4)
[2018-04-21] MEDS: SODIUM CHLORIDE 1 GM TABLET PO SCH (09:58)
[2018-04-21] MEDS: amLODIPine BESYLATE 5 MG TABLET (FP) PO SCH (09:58)
[2018-04-21] MEDS: AZITHROMYCIN IVPB 500 MG in DEXTROSE 5%-WATER - 250 ML IVPB SCH (09:58)
[2018-04-21] MEDS ORDERED: MAGNESIUM SULF 50% (8.12 MEQ/2 ML-1 GM VIAL) IVPB ONE (10:12)
--- NOTE | 2018-04-21 12:14 | PN ---
Progress Note (short form) - Note Progress Note: patient is laying down / sedated abd aide at bedside youngest son also arrived at time of visit case discussed / options for STR / vs return to [facility] "will need to discuss further with son " per Vital Signs Period Temp Pulse Resp BP Sys/Fleming Pulse Ox Last 24 Hr 97.8 F-99.1 F 85-97 18-20 111-140/50-76 97 Right conjunctivitis -- improved / less d/c sclear clear neck supple heart S1/S2 lung clear bilat and soft non tender Ext no edema CBC, BMP 04/21/18 06:30 04/21/18 06:30 CBC, BMP 04/20/18 06:10 04/20/18 06:10 CBC, BMP 04/19/18 04/19/18 06:40 Microbiology 04/18/18 12:43 Urine - Urine - Catheterized Urine Culture - Final Proteus Mirabilis 04/18/18 12:30 Blood - Peripheral Venous Blood Culture - Preliminary NO GROWTH OBTAINED AFTER 48 HOURS, INCUBATION TO CONTINUE FOR 3 DAYS. 04/18/18 12:30 Blood - Peripheral Venous Blood Culture - Preliminary NO GROWTH OBTAINED AFTER 48 HOURS, INCUBATION TO CONTINUE FOR 3 DAYS. Active Medications Amlodipine Besylate (Norvasc -) 5 mg PO DAILY [facility] Last Admin: 04/21/18 09:58 Dose: 5 mg Bupropion HCl (Wellbutrin Xl -) 300 mg PO DAILY [facility] Last Admin: 04/21/18 09:58 Dose: 300 mg Azithromycin 500 mg/ Dextrose 250 mls @ 250 mls/hr IVPB DAILY [facility] Last Admin: 04/21/18 09:58 Dose: 250 mls/hr Levothyroxine Sodium (Synthroid -) 50 mcg PO DAILY@0700 [facility] Last Admin: 04/21/18 06:41 Dose: 50 mcg Loperamide HCl (Imodium -) 2 mg PO Q6H PRN PRN Reason: DIARRHEA Lorazepam (Ativan Injection -) 1 mg IM Q6H PRN PRN Reason: ANXIETY Last Admin: 04/20/18 22:18 Dose: 1 mg Mirtazapine (Remeron -) 7.5 mg PO HS [facility] Last Admin: 04/20/18 21:18 Dose: 7.5 mg Sitagliptin Phosphate (Januvia -) 50 mg PO DAILY@0700 [facility] Last Admin: 04/21/18 06:42 Dose: 50 mg Sodium Chloride (Sodium Chloride Tablet -) 1 gm PO DAILY [facility] Last Admin: 04/21/18 09:58 Dose: 1 gm Tobramycin Sulfate (Tobrex Ophthalmic Solution -) 1 drop OD Q4HWA [facility] Stop: 04/21/18 21:59 Last Admin: 04/21/18 09:58 Dose: 1 drop The patient is a 82 year old female with a significant PMH of advanced dementia, hypothyroidism, NIDDM, HTN, and chronic hyponatremia who presents to the emergency department with increased aggression over the past seven days as per alf. The family states the patient is occasionally aggressive. # Hyponatremia slowly improving -- continue to trend fluid restrict # conjunctivitis tobramycin / eye wash / avoid contact # chronic sinusitis azithromycin / expectorant / # Dementia continue to monitor for safety psych eval appreciated will start remeron # Hypothyroid synthroid increased -- elevated TSH will monitor as out patient # DM II will resume Januvia once she begins PO intake HgA1C 8.6 will need better control -- will resume Januvia discharge discussed with family -- are considering option for STR prior to return to [address] [place] [address] Problem List - Problems (1) Hyponatremia Code(s): E87.1 - HYPO-OSMOLALITY AND HYPONATREMIA (2) Aggression Code(s): R46.89 - OTHER SYMPTOMS AND SIGNS INVOLVING APPEARANCE AND BEHAVIOR (3) Sinusitis, chronic Code(s): J32.9 - CHRONIC SINUSITIS, UNSPECIFIED Qualifiers: Sinusitis location: sphenoidal Qualified Code(s): J32.3 - Chronic sphenoidal sinusitis (4) Conjunctivitis Code(s): H10.9 - UNSPECIFIED CONJUNCTIVITIS (5) Hypothyroidism Code(s): E03.9 - HYPOTHYROIDISM, UNSPECIFIED Qualifiers: Hypothyroidism type: acquired Qualified Code(s): E03.9 - Hypothyroidism, unspecified (6) Diabetes mellitus Code(s): E11.9 - TYPE 2 DIABETES MELLITUS WITHOUT COMPLICATIONS (7) HTN (hypertension) Code(s): I10 - ESSENTIAL (PRIMARY) HYPERTENSION
--- NOTE | 2018-04-21 15:28 | PN ---
Progress Note, Physician History of Present Illness: Pt seen and examined at bedside. She appears clam at the moment. - Current Medication List Current Medications: Active Medications Amlodipine Besylate (Norvasc -) 5 mg PO DAILY [facility] Last Admin: 04/21/18 09:58 Dose: 5 mg Bupropion HCl (Wellbutrin Xl -) 300 mg PO DAILY [facility] Last Admin: 04/21/18 09:58 Dose: 300 mg Azithromycin 500 mg/ Dextrose 250 mls @ 250 mls/hr IVPB DAILY [facility] Last Admin: 04/21/18 09:58 Dose: 250 mls/hr Levothyroxine Sodium (Synthroid -) 50 mcg PO DAILY@0700 [facility] Last Admin: 04/21/18 06:41 Dose: 50 mcg Loperamide HCl (Imodium -) 2 mg PO Q6H PRN PRN Reason: DIARRHEA Lorazepam (Ativan Injection -) 1 mg IM Q6H PRN PRN Reason: ANXIETY Last Admin: 04/20/18 22:18 Dose: 1 mg Mirtazapine (Remeron -) 7.5 mg PO HS [facility] Last Admin: 04/20/18 21:18 Dose: 7.5 mg Sitagliptin Phosphate (Januvia -) 50 mg PO DAILY@0700 [facility] Last Admin: 04/21/18 06:42 Dose: 50 mg Sodium Chloride (Sodium Chloride Tablet -) 1 gm PO DAILY [facility] Last Admin: 04/21/18 09:58 Dose: 1 gm Tobramycin Sulfate (Tobrex Ophthalmic Solution -) 1 drop OD Q4HWA [facility] Stop: 04/21/18 21:59 Last Admin: 04/21/18 14:48 Dose: 1 drop - Objective Vital Signs: Vital Signs Temperature 98.1 F 04/21/18 09:00 Pulse Rate 92 H 04/21/18 09:00 Respiratory Rate 20 04/21/18 09:00 Blood Pressure 119/50 04/21/18 09:00 O2 Sat by Pulse Oximetry (%) 97 04/20/18 21:00 Constitutional: Yes: Calm Eyes: Yes: Conjunctiva Clear HENT: Yes: Atraumatic Neck: Yes: Supple Cardiovascular: Yes: S1, S2 Respiratory: Yes: CTA Bilaterally Gastrointestinal: Yes: Soft Genitourinary: Yes: WNL Musculoskeletal: Yes: WNL Edema: No Neurological: Yes: Confusion Labs: CBC, BMP 04/21/18 06:30 04/21/18 06:30 INR, PTT INR Cancelled 04/18/18 12:30 Problem List - Problems (1) Aggression Code(s): R46.89 - OTHER SYMPTOMS AND SIGNS INVOLVING APPEARANCE AND BEHAVIOR (2) Diabetes mellitus Code(s): E11.9 - TYPE 2 DIABETES MELLITUS WITHOUT COMPLICATIONS (3) HTN (hypertension) Code(s): I10 - ESSENTIAL (PRIMARY) HYPERTENSION (4) Hyponatremia Code(s): E87.1 - HYPO-OSMOLALITY AND HYPONATREMIA (5) Hypothyroidism Code(s): E03.9 - HYPOTHYROIDISM, UNSPECIFIED Qualifiers: Hypothyroidism type: acquired Qualified Code(s): E03.9 - Hypothyroidism, unspecified Assessment/Plan Current Medications Generic Name Dose Route Start Last Admin Trade Name Freq PRN Reason Stop Dose Admin Amlodipine Besylate 5 mg 04/19/18 10:00 04/21/18 09:58 Norvasc - PO 5 mg DAILY [facility] Administration Bupropion HCl 300 mg 04/19/18 10:00 04/21/18 09:58 Wellbutrin Xl - PO 300 mg DAILY [facility] Administration Azithromycin 500 mg/ Dextrose 250 mls @ 250 mls/hr 04/19/18 10:00 04/21/18 09 :58 IVPB 250 mls/hr DAILY [facility] Administration Levothyroxine Sodium 50 mcg 04/19/18 07:00 04/21/18 06:41 Synthroid - PO 50 mcg DAILY@0700 [facility] Administration Loperamide HCl 2 mg 04/18/18 20:47 Imodium - PO Q6H PRN DIARR[facility]A Lorazepam 1 mg 04/18/18 21:30 04/20/18 22:18 Ativan Injection - IM 1 mg Q6H PRN Administration ANXIETY Mirtazapine 7.5 mg 04/20/18 22:00 04/20/18 21:18 Remeron - PO 7.5 mg HS [facility] Administration Sitagliptin Phosphate 50 mg 04/21/18 07:00 04/21/18 06:42 Januvia - PO 50 mg DAILY@0700 [facility] Administration Sodium Chloride 1 gm 04/19/18 16:00 04/21/18 09:58 Sodium Chloride Tablet - PO 1 gm DAILY [facility] Administration Tobramycin Sulfate 1 drop 04/18/18 22:00 04/21/18 14:48 Tobrex Ophthalmic Solution - OD 04/21/18 21:59 1 drop Q4HWA [facility] Administration Laboratory Tests 04/19/18 04/21/18 06:40 06:30 Magnesium 1.7 L Cortisol AM Sample 29.8 Impression 1. Hyponatremia - improved from outpt labs 2. aggression 3. DM 4. HTN 5. depression 6. dementia 7. hypothyroidism Plan - sodium stable - cont salt tabs - cont free water restriction - will need better blood sugar control - no gross heart failure on echo - replace mag - will follow
[2018-04-21] MEDS: MIRTAZAPINE 15 MG TABLET (FP) PO SCH (22:05)
[2018-04-21] MEDS ORDERED: LORazepam 2 MG/ML SDV VIAL IM ONE ×2 (23:17→23:30)
[2018-04-22] MEDS: LEVOTHYROXINE NA 50 MCG TABLET (FP) PO SCH (06:22)
[2018-04-22] MEDS: sitaGLIPtin PHOSPHATE 50 MG TABLET PO SCH (06:22)
--- NOTE | 2018-04-22 10:40 | PN ---
Progress Note (short form) - Note Progress Note: patient is laying down / sedated abd aide at bedside case discussed with older son and -- will consider STR vs return to [facility] Vital Signs Period Temp Pulse Resp BP Sys/Fleming Pulse Ox Last 24 Hr 97.8 F-99.1 F 85-97 18-20 111-140/50-76 97 Right conjunctivitis -- improved / less d/c sclear clear -- neck supple heart S1/S2 lung clear bilat and soft non tender Ext no edema CBC, BMP 04/21/18 06:30 04/21/18 06:30 CBC, BMP 04/20/18 06:10 04/20/18 06:10 Mag replaced 04/21/18 CBC, BMP 04/19/18 04/19/18 06:40 Microbiology Microbiology 04/18/18 12:30 Blood - Peripheral Venous Blood Culture - Preliminary NO GROWTH OBTAINED AFTER 72 HOURS, INCUBATION TO CONTINUE FOR 2 DAYS. 04/18/18 12:30 Blood - Peripheral Venous Blood Culture - Preliminary NO GROWTH OBTAINED AFTER 72 HOURS, INCUBATION TO CONTINUE FOR 2 DAYS. 04/18/18 12:43 Urine - Urine - Catheterized Urine Culture - Final Proteus Mirabilis Active Medications Amlodipine Besylate (Norvasc -) 5 mg PO DAILY [facility] Last Admin: 04/21/18 09:58 Dose: 5 mg Bupropion HCl (Wellbutrin Xl -) 300 mg PO DAILY [facility] Last Admin: 04/21/18 09:58 Dose: 300 mg Azithromycin 500 mg/ Dextrose 250 mls @ 250 mls/hr IVPB DAILY [facility] Last Admin: 04/21/18 09:58 Dose: 250 mls/hr Levothyroxine Sodium (Synthroid -) 50 mcg PO DAILY@0700 [facility] Last Admin: 04/22/18 06:22 Dose: 50 mcg Loperamide HCl (Imodium -) 2 mg PO Q6H PRN PRN Reason: DIARRHEA Mirtazapine (Remeron -) 7.5 mg PO HS [facility] Last Admin: 04/21/18 22:05 Dose: 7.5 mg Sitagliptin Phosphate (Januvia -) 50 mg PO DAILY@0700 [facility] Last Admin: 04/22/18 06:22 Dose: 50 mg Sodium Chloride (Sodium Chloride Tablet -) 1 gm PO DAILY [facility] Last Admin: 04/21/18 09:58 Dose: 1 gm The patient is a 82 year old female with a significant PMH of advanced dementia, hypothyroidism, NIDDM, HTN, and chronic hyponatremia who presents to the emergency department with increased aggression over the past seven days as per [facility]. The family states the patient is occasionally aggressive. # Hyponatremia slowly improving -- continue to trend fluid restrict # conjunctivitis tobramycin / eye wash / avoid contact # chronic sinusitis azithromycin / expectorant / # Dementia with behavior changes -- aggressive behavior continue to monitor for safety psych matheus rivero will add depakote # Hypothyroid synthroid increased -- elevated TSH will monitor as out patient # DM II will resume Januvia once she begins PO intake HgA1C 8.6 will need better control -- will resume Januvia discharge discussed with family -- are considering option for STR prior to return to [address] [place] [address] Problem List - Problems (1) Hyponatremia Code(s): E87.1 - HYPO-OSMOLALITY AND HYPONATREMIA (2) Aggression Code(s): R46.89 - OTHER SYMPTOMS AND SIGNS INVOLVING APPEARANCE AND BEHAVIOR (3) Sinusitis, chronic Code(s): J32.9 - CHRONIC SINUSITIS, UNSPECIFIED Qualifiers: Sinusitis location: sphenoidal Qualified Code(s): J32.3 - Chronic sphenoidal sinusitis (4) Conjunctivitis Code(s): H10.9 - UNSPECIFIED CONJUNCTIVITIS (5) Hypothyroidism Code(s): E03.9 - HYPOTHYROIDISM, UNSPECIFIED Qualifiers: Hypothyroidism type: acquired Qualified Code(s): E03.9 - Hypothyroidism, unspecified (6) Diabetes mellitus Code(s): E11.9 - TYPE 2 DIABETES MELLITUS WITHOUT COMPLICATIONS (7) HTN (hypertension) Code(s): I10 - ESSENTIAL (PRIMARY) HYPERTENSION
[2018-04-22] MEDS: AZITHROMYCIN IVPB 500 MG in DEXTROSE 5%-WATER - 250 ML IVPB SCH (12:04)
[2018-04-22 12:11] LABS: ANION GAP 10 (8-16); BLOOD UREA NITROGEN 9 mg/dL (7-18); CALCIUM 9.2 mg/dL (8.5-10.1); CHLORIDE 97 mmol/L (98-107); CO2 26 mmol/L (21-32); CREATININE 0.8 mg/dL (0.55-1.02); GLUCOSE,RANDOM 157 mg/dL (74-106); MAGNESIUM 2.1 mg/dL (1.8-2.4); POTASSIUM 3.9 mmol/L (3.5-5.1); SODIUM 133 mmol/L (136-145)
[2018-04-22] MEDS: amLODIPine BESYLATE 5 MG TABLET (FP) PO SCH (12:23)
[2018-04-22] MEDS: SODIUM CHLORIDE 1 GM TABLET PO SCH ×2 (12:23→12:45)
--- NOTE | 2018-04-22 12:55 | PN ---
Progress Note, Physician History of Present Illness: Pt seen and examined at bedside. She is awake and appears comfortable. is at bedside and case was discussed with him at length. - Current Medication List Current Medications: Active Medications Amlodipine Besylate (Norvasc -) 5 mg PO DAILY [facility] Last Admin: 04/22/18 12:23 Dose: Not Given Bupropion HCl (Wellbutrin Xl -) 300 mg PO DAILY [facility] Last Admin: 04/22/18 12:45 Dose: 300 mg Divalproex Sodium (Depakote Sprinkle Caps -) 125 mg PO TID [facility] Azithromycin 500 mg/ Dextrose 250 mls @ 250 mls/hr IVPB DAILY [facility] Last Admin: 04/22/18 12:04 Dose: 250 mls/hr Levothyroxine Sodium (Synthroid -) 50 mcg PO DAILY@0700 [facility] Last Admin: 04/22/18 06:22 Dose: 50 mcg Loperamide HCl (Imodium -) 2 mg PO Q6H PRN PRN Reason: DIARRHEA Mirtazapine (Remeron -) 7.5 mg PO HS [facility] Last Admin: 04/21/18 22:05 Dose: 7.5 mg Sitagliptin Phosphate (Januvia -) 50 mg PO DAILY@0700 [facility] Last Admin: 04/22/18 06:22 Dose: 50 mg Sodium Chloride (Sodium Chloride Tablet -) 1 gm PO DAILY [facility] Last Admin: 04/22/18 12:45 Dose: 1 gm - Objective Vital Signs: Vital Signs Temperature 98.9 F 04/22/18 10:00 Pulse Rate 85 04/22/18 10:00 Respiratory Rate 20 04/22/18 10:00 Blood Pressure 128/74 04/22/18 10:00 O2 Sat by Pulse Oximetry (%) 97 04/20/18 21:00 Constitutional: Yes: Calm Eyes: Yes: Conjunctiva Clear HENT: Yes: Atraumatic Cardiovascular: Yes: S1, S2 Respiratory: Yes: CTA Bilaterally Gastrointestinal: Yes: Soft Genitourinary: Yes: Incontinence Musculoskeletal: Yes: WNL Extremities: Yes: WNL Edema: No Neurological: Yes: Oriented Psychiatric: Yes: Oriented Labs: CBC, BMP 04/21/18 06:30 04/22/18 11:20 INR, PTT INR Cancelled 04/18/18 12:30 Problem List - Problems (1) Aggression Code(s): R46.89 - OTHER SYMPTOMS AND SIGNS INVOLVING APPEARANCE AND BEHAVIOR (2) Diabetes mellitus Code(s): E11.9 - TYPE 2 DIABETES MELLITUS WITHOUT COMPLICATIONS (3) HTN (hypertension) Code(s): I10 - ESSENTIAL (PRIMARY) HYPERTENSION (4) Hyponatremia Code(s): E87.1 - HYPO-OSMOLALITY AND HYPONATREMIA (5) Hypothyroidism Code(s): E03.9 - HYPOTHYROIDISM, UNSPECIFIED Qualifiers: Hypothyroidism type: acquired Qualified Code(s): E03.9 - Hypothyroidism, unspecified Assessment/Plan Current Medications Generic Name Dose Route Start Last Admin Trade Name Freq PRN Reason Stop Dose Admin Amlodipine Besylate 5 mg 04/19/18 10:00 04/22/18 12:23 Norvasc - PO Not Given DAILY SH[facility]AN Bupropion HCl 300 mg 04/19/18 10:00 04/22/18 12:45 Wellbutrin Xl - PO 300 mg DAILY [facility] Administration Divalproex Sodium 125 mg 04/22/18 14:00 Depakote Sprinkle Caps - PO TID [facility]AN Azithromycin 500 mg/ Dextrose 250 mls @ 250 mls/hr 04/19/18 10:00 04/22/18 12 :04 IVPB 250 mls/hr DAILY [facility] Administration Levothyroxine Sodium 50 mcg 04/19/18 07:00 04/22/18 06:22 Synthroid - PO 50 mcg DAILY@0700 [facility] Administration Loperamide HCl 2 mg 04/18/18 20:47 Imodium - PO Q6H PRN DIARRHEA Mirtazapine 7.5 mg 04/20/18 22:00 04/21/18 22:05 Remeron - PO 7.5 mg HS [facility]AN Administration Sitagliptin Phosphate 50 mg 04/21/18 07:00 04/22/18 06:22 Januvia - PO 50 mg DAILY@0700 [facility] Administration Sodium Chloride 1 gm 04/19/18 16:00 04/22/18 12:45 Sodium Chloride Tablet - PO 1 gm DAILY [facility] Administration Impression 1. Hyponatremia - improved from outpt labs 2. aggression 3. DM 4. HTN 5. depression 6. dementia 7. hypothyroidism Plan - sodium is stable - cont salt tabs - restrict free water to a liter - discussed plan with family - will need better blood sugar control - will follow
[2018-04-22] MEDS: DIVALPROEX SODIUM 125 MG SPRINKLE CAPS PO SCH ×2 (14:29→21:09)
--- NOTE | 2018-04-22 17:08 | DS ---
Physical Examination Vital Signs: Vital Signs Temperature 98.1 F 04/22/18 13:35 Pulse Rate 88 04/22/18 13:35 Respiratory Rate 18 04/22/18 13:35 Blood Pressure 120/51 04/22/18 13:35 O2 Sat by Pulse Oximetry (%) 98 04/22/18 09:00 Constitutional: Yes: Well Nourished, Other (sedated) Eyes: Yes: Conjunctiva Clear, Other (crusting left eye) HENT: Yes: Other (ecymotic area left forhead) Neck: Yes: Supple, Trachea Midline Cardiovascular: Yes: Regular Rate and Rhythm Respiratory: Yes: Regular Gastrointestinal: Yes: Normal Bowel Sounds ...Rectal Exam: Yes: Deferred Renal/: Yes: WNL Breast(s): Yes: WNL Musculoskeletal: Yes: WNL Extremities: No: Deformity, Internal Rotation, Shortened Edema: No Peripheral Pulses WNL: Yes Integumentary: Yes: WNL Neurological: Yes: Pre-Existing Deficit Labs: CBC, BMP 04/21/18 06:30 04/22/18 11:20 Discharge Summary Reason For Visit: HYPONATREMIA Current Active Problems Aggression (Acute) Conjunctivitis (Acute) Diabetes mellitus (Acute) HTN (hypertension) (Acute) Hyponatremia (Acute) Hypothyroidism (Acute) Sinusitis, chronic (Acute) Condition: Improved - Instructions Disposition: HOME - Home Medications Comprehensive Discharge Medication List: Ambulatory Orders Amlodipine Besylate [Norvasc -] 5 mg PO DAILY 04/18/18 Bifidobacterium Infantis [Align] 4 mg PO DAILY 04/18/18 Bupropion HCl [Bupropion Xl] 300 mg PO DAILY 04/18/18 Cholecalciferol (Vitamin D3) [Vitamin D3] 50,000 unit PO MONTHLY 04/18/18 Cholestyramine (with Sugar) [Cholestyramine Powder] 4 gm PO TID 04/18/18 Cyanocobalamin (Vitamin B-12) [Vitamin B12] 5,000 mcg PO DAILY 04/18/18 Cyclosporine [Restasis] 1 each OU BID 04/18/18 Loperamide HCl [Loperamide] 2 mg PO Q6H PRN 04/18/18 Paliperidone [Paliperidone ER] 1.5 mg PO HS 04/18/18 Sitagliptin Phosphate [Januvia] 50 mg PO DAILY 04/18/18 Vit C/E/Zn/Coppr/Lutein/Zeaxan [Preservision Areds 2 Softgel] 1 each PO DAILY Divalproex Sprinkle [Depakote Sprinkle -] 125 mg PO TID 30 Days #90 cap.sprink 04/22/18 Levothyroxine [Synthroid -] 50 mcg PO DAILY@0700 30 Days #30 tablet 04/22/18 Mirtazapine [Remeron -] 7.5 mg PO HS 30 Days #30 tablet 04/22/18 Sitagliptin Phosphate [Januvia -] 50 mg PO DAILY@0700 tablet 04/22/18 Sodium Chloride Tablet - 1 gm PO DAILY 30 Days #30 tablet 04/22/18 Tobramycin 0.3% Ophth Soln [Tobrex Ophthalmic Solution -] 1 drop OD Q4HWA drops 04/22/18
[2018-04-22] MEDS: MIRTAZAPINE 15 MG TABLET (FP) PO SCH (21:09)
[2018-04-22] MEDS ORDERED: LORazepam 2 MG/ML SDV VIAL IM ONE (22:45)
[2018-04-23] MEDS: LEVOTHYROXINE NA 50 MCG TABLET (FP) PO SCH (06:27)
[2018-04-23] MEDS: DIVALPROEX SODIUM 125 MG SPRINKLE CAPS PO SCH (06:27)
[2018-04-23] MEDS: sitaGLIPtin PHOSPHATE 50 MG TABLET PO SCH (06:27)
[2018-04-23 08:57] LABS: BASO % 0.7 % (0-2.0); HEMATOCRIT 37.8 % (32.4-45.2); HEMOGLOBIN 11.7 GM/dL (10.7-15.3); LYMPH % 13.5 % (8-40); MCH 21.8 pg (25.7-33.7); MCHC 30.8 g/dl (32.0-36.0); MEAN CELL VOLUME 70.9 fl (80-96); MEAN PLT VOLUME 6.8 fl (7.5-11.1); MONO % 11.8 % (3.8-10.2); PLATELET COUNT 331 K/MM3 (134-434); RBC 5.34 M/mm3 (3.60-5.2)
[2018-04-23 09:21] LABS: CHLORIDE 98 mmol/L (98-107); POTASSIUM 4.1 mmol/L (3.5-5.1); SODIUM 134 mmol/L (136-145)
[2018-04-23 09:28] LABS: ANION GAP 11 (8-16); BLOOD UREA NITROGEN 16 mg/dL (7-18); CALCIUM 9.1 mg/dL (8.5-10.1); CO2 25 mmol/L (21-32); GLUCOSE,RANDOM 184 mg/dL (74-106)
[2018-04-23 09:56] VITALS: BP 129/54; PULSE 87; TEMP 98.2
[2018-04-23] MEDS: AZITHROMYCIN IVPB 500 MG in DEXTROSE 5%-WATER - 250 ML IVPB SCH (10:04)
[2018-04-23] MEDS: amLODIPine BESYLATE 5 MG TABLET (FP) PO SCH (10:07)
[2018-04-23] MEDS: SODIUM CHLORIDE 1 GM TABLET PO SCH (10:07)
== END 2018-04-23 10:38 | disposition home or self-care (01) | DRG 884 ==
LOC: JER 12:05 → JERBED 14:45 → J6S 19:46
PROVIDERS: ADMIT Family Medicine; ATTEND Family Medicine
PROC: 09JY8ZZ Inspection of Sinus, Via Natural or Artificial Opening Endoscopic (ICD-10-PCS; principal; 2018-04-20)
DX: F03.91 Unspecified dementia, unspecified severity, with behavioral disturbance (principal); E87.1 Hypo-osmolality and hyponatremia; E03.9 Hypothyroidism, unspecified; E11.9 Type 2 diabetes mellitus without complications; I10 Essential (primary) hypertension; F32.9 Major depressive disorder, single episode, unspecified; H10.89 Other conjunctivitis; J32.3 Chronic sphenoidal sinusitis
CPT/HCPCS: 36415; 70450-TC; 71045-TC-FY; 80048; 80053; 81003; 82436; 82533; 82550; 82962; 83036; 83540; 83605; 83735; 83930; 83935; 84133; 84300; 84443; 84484; 85025; 85027; 86850; 86900; 86901; 87040; 87086; 87186; 93005; 93010; 93306-TC; 93970-TC; 97116-GP; 97161-GP; 99283-25